=== PATIENT | female | born 1995 | race Hispanic/Latino ===

== ENCOUNTER 2019-06-18 09:38 | Observation (INO) | payer MEDICARE ==
[2019-06-17 16:25] VITALS: BP 112/64
[2019-06-17 16:31] LABS: CREATININE 0.5 mg/dL (0.5-1.5); POTASSIUM 4.8 mmol/L (3.5-5.1)
[2019-06-17 16:34] LABS: INR 1.03 (0.85-1.15); PROTHROMBIN TIME 10.8 SEC (9.6-11.6)
[2019-06-17 16:36] LABS: BASOPHILS % (AUTO) 0.7 % (0.0-5.0); HEMATOCRIT 35.7 % (36-48); MEAN CORPUSCULAR HEMOGLOBIN 23.1 pg (27.0-33.0); MEAN CORPUSCULAR HGB CONC 31.9 g/dL (32.0-36.0); MEAN CORPUSCULAR VOLUME 72.5 fL (79-99); MONOCYTES % (AUTO) 5.9 % (3.0-13.0); NEUTROPHILS % (AUTO) 66.4 % (40.0-77.0); PLATELET COUNT (AUTO) 417 K/uL (130-400); RED BLOOD CELL COUNT(AUTO) 4.93 MIL/uL (4.00-5.50); RED CELL DISTRIBUTION WIDTH 15.9 % (11.0-15.5); WHITE BLOOD COUNT (AUTO) 9.7 K/uL (4.8-10.8)
--- NOTE | 2019-06-17 17:04 | NUR ---
Called doctor george and advised him of plt of 417 and hemoglobin of 11.4, no new orders okay to proceed.
[2019-06-18] VITALS (21 sets, daily range): BP systolic 110–159; BP diastolic 50–81
[~2019-06-18] VITALS: Ht 121.9 cm; Wt 24.4 kg
[~2019-06-18 09:38] MED LIST: CEFAZOLIN SODIUM 1 GM VIAL IVP SCH; LACT10SO32 PO; MIRALAX PO
[2019-06-18] MEDS ORDERED: LACTATED RINGERS 1000ML 1,000 ML IV ONE ×2 (10:49→11:49)
[2019-06-18] MEDS ORDERED: LIDOCAINE PF 2% 5ML ABBOJECT ONE (10:50)
[2019-06-18] MEDS ORDERED: SUCCINYLCHOLINE 200MG/10ML SYR ONE (10:50)
[2019-06-18] MEDS ORDERED: PROPOFOL 10 MG/ML 20ML VIAL IV ONE (10:51)
[2019-06-18] MEDS ORDERED: ONDANSETRON HCL 4 MG/2 ML VIAL ONE (10:51)
[2019-06-18] MEDS ORDERED: DEXAMETHASONE SOD PHOSPHATE 10MG/ML 1ML VIAL ONE (10:51)
[2019-06-18] MEDS ORDERED: NEOSTIGMINE 5MG/5ML SYR IV ONE (10:51)
[2019-06-18] MEDS ORDERED: GLYCOPYRROLATE 1 MG/5 ML SYRINGE ONE (10:51)
[2019-06-18] MEDS ORDERED: MIDAZOLAM HCL 1 MG/ML 2ML VIAL ONE ×2 (10:51→14:18)
[2019-06-18] MEDS ORDERED: ROCURONIUM 10MG/1ML SYR 10 MG/ML ML ONE (10:52)
[2019-06-18] MEDS ORDERED: FENTANYL CITRATE PF 50 MCG/1 ML 2ML VIAL ONE (10:52)
[2019-06-18] MEDS ORDERED: ROPIVACAINE 0.5% 5MG/ML 30ML IJ ONE (11:02)
[2019-06-18] MEDS ORDERED: CEFAZOLIN SODIUM 1 GM VIAL ONE ×2 (11:41→12:15)
[2019-06-18] MEDS ORDERED: EPHEDRINE SULFATE 50 MG/ML AMPULE ONE (13:43)
[2019-06-18] MEDS ORDERED: LIDOCAINE HCL-MPF 1% 2ML VIAL IVP PRN (14:30)
[2019-06-18] MEDS ORDERED: POTASSIUM CHLORIDE 10% ELIXIR 20 MEQ/15 ML UDCUP PO PRN (14:30)
[2019-06-18] MEDS ORDERED: POTASSIUM CHLORIDE 20MEQ/100ML 100 ML IV PRN (14:30)
[2019-06-18] MEDS ORDERED: ACETAMINOPHEN ELIXIR 160 MG/5ML UDCUP PO PRN (14:30)
[2019-06-18] MEDS ORDERED: POTASSIUM CHLORIDE 20 MEQ ERTAB PO PRN (14:30)
[2019-06-18] MEDS ORDERED: MEPERIDINE-PF 25 MG/ML SYG ONE ×2 (14:35→14:48)
--- NOTE | 2019-06-18 15:37 | NUR ---
DISCHARGE PLANNING-WOUND VAC OVERHEARD TALK ABOUT WOUND VAC AND [facility] CALL TO DR. LUU- YES WILL NEED WOUND VAC, PT OF [facility], PLEASE CALL THEM THEY WILL ARRANGE CALL TO TOM AT [facility], STATES NO WOUND VAC, BUT IF NEWLY PLACED, PT HAS WOUND VAC AT HOME, PLS CALL [facility], AND HAVE MOM BRING WOUND VAC CALL TO [facility] NO RECORD OF PATIENT CALL TO [facility]- [facility] CALL TO [facility]- STATES DSG CHANGES ONLY, NO ORDERS FOR WOUND VAC, WILL NEED ORDERS, PLUS OWUND VAC, DO NOT THINK FMAILY HAS AT HOME, WILL NEED NEW WOUND VAC ORDERS AND REFERRAL. CERT PERIOD YESTERDAY CALL TO MOM, NO WOUND VAC AT HOME, WAS PICKED UP BY [facility]. Addendum: 06/18/19 at 1541 by LOLY RAMIREZ RN Amended: Links added.
[2019-06-18] MEDS: SODIUM CHLORIDE 0.9% 1000ML 1,000 ML IV SCH (15:54)
[2019-06-18] MEDS ORDERED: HYDROCODONE/ACETAMINOPHEN 7.5/325 MG 15 ML UDCUP PO PRN (16:45)
[2019-06-18] MEDS ORDERED: ONDANSETRON HCL 4 MG/2 ML VIAL IVP PRN (16:45)
[2019-06-18] MEDS: CEFAZOLIN SODIUM 1 GM VIAL IVP SCH (18:00)
[2019-06-18] MEDS: KETOROLAC TROMETHAMINE 15MG/ML IV PRN (21:40)
[2019-06-19] MEDS: CEFAZOLIN SODIUM 1 GM VIAL IVP SCH (00:48)
[2019-06-19] MEDS: DiphenhydrAMINE HCL 50 MG/ML VIAL IV PRN ×2 (00:57→21:40)
[2019-06-19] MEDS: SODIUM CHLORIDE 0.9% 1000ML 1,000 ML IV SCH (01:56)
[2019-06-19 03:58] LABS: HEMATOCRIT 26.3 % (36-48); MEAN CORPUSCULAR HEMOGLOBIN 23.1 pg (27.0-33.0); MEAN CORPUSCULAR HGB CONC 31.9 g/dL (32.0-36.0); MEAN CORPUSCULAR VOLUME 72.3 fL (79-99); PLATELET COUNT (AUTO) 324 K/uL (130-400); RED BLOOD CELL COUNT(AUTO) 3.64 MIL/uL (4.00-5.50); RED CELL DISTRIBUTION WIDTH 15.2 % (11.0-15.5); WHITE BLOOD COUNT (AUTO) 10.6 K/uL (4.8-10.8)
[2019-06-19 04:00] VITALS: BP 108/59
[2019-06-19 04:04] LABS: CREATININE 0.4 mg/dL (0.5-1.5); POTASSIUM 4.3 mmol/L (3.5-5.1)
[2019-06-19 07:40] VITALS: BP 107/52
[2019-06-19] MEDS ORDERED: ASPIRIN 81MG TAB.CHEW PO SCH (09:00)
[2019-06-19] MEDS ORDERED: POLYETHYLENE GLYCOL 3350 17 GM POWD.PACK PO SCH (09:00)
[2019-06-19] MEDS: KETOROLAC TROMETHAMINE 15MG/ML IV PRN ×2 (10:00→21:40)
[2019-06-19 11:14] VITALS: BP 104/62
--- NOTE | 2019-06-19 11:54 | NUR ---
[facility] UPDATE CM spoke to [facility] outbound call center representative, Vilma. Confirmed order was received and expedited order for release. CM notified to deliver wound vac to room 404. States supervisor sterile processing will be calling with estimated time of delivery. CM provided primary nurse number and CM number for call back. CM updated nursing with above. CM also f/u with Saiar with [facility]. States they do not have a wound vac for pt and will need DME to continue following pt.
[2019-06-19] MEDS ORDERED: HYDR473S51 PO (14:23)
[2019-06-19] MEDS ORDERED: ACET160S2 PO (14:23)
[2019-06-19 16:40] VITALS: BP 116/63
--- NOTE | 2019-06-19 18:47 | NUR ---
[facility] F/U cm spoke to Anup with [facility]. States ETA for wound vac is between 8-830 and will be delivered tonight. CM updated nursing with above.
[2019-06-19 19:47] VITALS: BP 113/68
--- NOTE | 2019-06-19 20:16 | NUR ---
REPORT CALLED TO [facility] NURSE LESLY CHAUDHARY RN.
--- NOTE | 2019-06-19 21:40 | NUR ---
DISCHARGE PATIENT ALONG WITH MOTHER AND FATHER AT BEDSIDE GIVEN DISCHARGE INSTRUCTIONS AND EDUCATION, INCLUDING SIDE EFFECTS ON NEW PRESCRIBED MEDICATIONS AND THE NEED TO MAKE FOLLOW UP APPOINTMENT. MOTHER VERBALIZED UNDERSTANDING OF ALL EDUCATION GIVEN VIA TEACH BACK. NO QUESTIONS OR CONCERNS VOICED AT THIS TIME. PATIENT MEDICATED FOR PAIN AND ITCHING BEFORE DISCONTINUING IV. IV DISCONTINUED, CATHETER INTACT. WOUND VAC CLAMPED. [facility] DEL[facility] WOUND VAC. EMS HERE TO TRANSFER PATIENT HOME. NO SIGNS OF DISTRESS NOTED UPON DISCHARGE. PATIENT LEFT VIA STRETCHER WITH EMS. FAMILY AT SIDE. ALL BELONGINGS TAKEN WITH. Addendum: 06/19/19 at 2301 by LUIS ENRIQUE GUZMAN RN RN Amended: Links added.
[2019-06-21] MEDS ORDERED: BISACODYL 10 MG SUPP.RECT RC PRN (14:30)
== END 2019-06-19 21:45 | disposition home health service (06) ==
LOC: DAH 09:38 → 4AH 09:39 → DAH 09:39
PROVIDERS: ADMIT Orthopaedic Surgery; ATTEND Orthopaedic Surgery
DX: T84.498A Other mechanical complication of other internal orthopedic devices, implants and grafts, initial encounter (principal); M21.852 Other specified acquired deformities of left thigh; G80.0 Spastic quadriplegic cerebral palsy; K59.00 Constipation, unspecified; X58.XXXA Exposure to other specified factors, initial encounter; Y93.89 Activity, other specified; Y92.89 Other specified places as the place of occurrence of the external cause; Y99.8 Other external cause status; Z83.3 Family history of diabetes mellitus; Z79.899 Other long term (current) drug therapy; Z79.01 Long term (current) use of anticoagulants
CPT/HCPCS: 11043; 20680; 36415 ×2; 73503; 80048 ×2; 84703; 85025; 85027; 85610; 86850; 86900; 86901; 87070; 87076; 87077 ×2; 87186 ×2; 87205; 88300; 88304; 96374; 96375; 96376; A4930 ×3; A6210; A6223; A9272; G0378 ×30; J0330; J0690 ×4; J1100; J1200 ×2; J1885 ×4; J2001; J2175 ×2; J2250 ×2; J2405 ×2; J2704; J2710; J2795; J3010; J3490 ×2; J7030; J7120 ×2

== ENCOUNTER 2020-11-13 09:03 | Emergency (ER) | payer MEDICARE ==
[~2020-11-13 09:03] MED LIST changes: +ACET160S2 PO; -CEFAZOLIN SODIUM 1 GM VIAL IVP SCH; +HYDR473S51 PO; -LACT10SO32 PO; -MIRALAX PO
[2020-11-13 09:43] LABS: BASOPHILS % (AUTO) 0.5 % (0.0-5.0); EOSINOPHILS % (AUTO) 0.1 % (0.0-8.0); HEMATOCRIT 38.5 % (36-48); LYMPHOCYTES % (AUTO) 10.9 % (21.0-51.0); MEAN CORPUSCULAR HEMOGLOBIN 27.9 pg (27.0-33.0); MEAN CORPUSCULAR VOLUME 84.4 fL (79-99); MONOCYTES % (AUTO) 2.9 % (3.0-13.0); NEUTROPHILS % (AUTO) 84.9 % (40.0-77.0); PLATELET COUNT (AUTO) 241 K/uL (130-400); RED BLOOD CELL COUNT(AUTO) 4.56 MIL/uL (4.00-5.50); RED CELL DISTRIBUTION WIDTH 13.2 % (11.0-15.5); WHITE BLOOD COUNT (AUTO) 8.6 K/uL (4.8-10.8)
[2020-11-13 09:59] LABS: ALBUMIN 3.9 g/dL (3.5-5.0); BILIRUBIN,TOTAL 0.2 mg/dL (0.2-1.0); CREATININE 0.6 mg/dL (0.5-1.5); POTASSIUM 3.9 mmol/L (3.5-5.1)
[2020-11-13 10:32] LABS: APPEARANCE,URINE CLEAR (CLEAR); BILIRUBIN,URINE NEGATIVE (NEGATIVE); COLOR,URINE YELLOW (YELLOW); GLUCOSE, URINE (UA) NEGATIVE (NEGATIVE); KETONES,URINE NEGATIVE (NEGATIVE); LEUKOCYTE ESTERASE ,URINE NEGATIVE (NEGATIVE); NITRATE,URINE NEGATIVE (NEGATIVE); OCCULT BLOOD,URINE SMALL (NEGATIVE); PROTEIN,URINE NEGATIVE (NEGATIVE); UROBILINOGEN,URINE 0.2 mg/dL (0.2-1.0)
[2020-11-13 11:20] LABS: RBC,URINE 0-1 /HPF (0-1); WBC,URINE 0-1 /HPF (0-1)
[2020-11-13 11:21] LABS: BACTERIA,URINE Rare /HPF (None Seen); SQUAMOUS EPITHELIAL CELL,UR Rare /HPF (0-2)
== END 2020-11-13 11:52 | disposition home or self-care (01) ==
LOC: EDH 09:03
DX: R33.9 Retention of urine, unspecified (principal)
CPT/HCPCS: 36415; 51702; 80053; 81001; 85025

== ENCOUNTER 2024-11-27 13:25 | Emergency (ER) | payer MEDICARE ==
--- NOTE | 2024-11-27 13:49 | ERN ---
ED Note History of Present Illness Stated Complaint: HAVING TROUBLE URINATING Chief Complaint: Urinary Retention Time Seen by MD: 13:37 Allergies: Coded Allergies: No Known Drug Allergies (Unverified Allergy, Unknown, 12/23/14) Home Meds Active Scripts Hydrocodone/Acetaminophen (Lortab 10 mg-300 mg/15 ml Elxr) 473 Ml Solution, 10 ML PO Q6HPRN PRN for PAIN, #250 ML Prov:MARIANNE LUU MD 06/19/19 Acetaminophen (Tylenol Elixir) 325 Mg/10.15 Ml Solution, 325 MG PO Q6HPRN PRN fo r PAIN, #500 ML Prov:MARIANNE LUU MD 06/19/19 Past Medical History Dictation Patient comes in with complaint of possible urinary retention. Patient has cerebral palsy. For extremity contractures. Per mom and dad he intermittently gets constipation and urinary retention and comes in for Guardado catheter. They have a doctor that visits monthly. Is scheduled to visit in two days. Typically if this happened she will get a Guardado and her primary we will discontinue the Guardado at bedside during home visit her parents. They report that last bowel movement was two days ago and noticed that she had not urinated since last night. Past Medical History: Other Additional Past Medical Hx: CEREBRAL PALSY Surgical History: Other Surgical History Other: HIP, BACK SX Family History: Negative Social History: Lives with family History: Not Applicable Review of System Dictation Limited as patient is nonverbal. Provided by parents. Initial Vital Sign VS Vital Signs Date Time Temp Pulse Resp B/P (MAP) Pulse Ox O2 Delivery O2 Flow Rate FiO2 11/27/24 13:32 99.3 97 16 110/75 95 Room Air 0 11/27/24 13:35 21 Physical Exam Dictation GEN: non toxic, NAD HEENT: atrumatic, PERRL, EOMI, conjunctivae normal NECK: Soft supple nontender Heart RRR, no murmurs Chest: No deformity Lungs: Lungs clear to auscultation Ab: Soft perhaps mildly distended suprapubic region but soft Back: No midline step-offs. No gross deformity. No CVA tenderness : m/s: Moving all four extremities. No gross deformity Neuro: CN 2-12 intact. Four extremities contracted but mobile Results (Laboratory/Radiology) Laboratory/Radiology Laboratory Tests Test 11/27/24 17:31 White Blood Count 8.5 K/uL (4.8-10.8) Red Blood Count 4.40 MIL/uL (4.00-5.50) Hemoglobin 8.3 g/dL (12.0-16.0) L Hematocrit 28.6 % (36-48) L Mean Corpuscular Volume 65.0 fL (79-99) L Mean Corpuscular Hemoglobin 18.9 pg (27.0-33.0) L Mean Corpuscular Hemoglobin Concent 29.0 g/dL (32.0-36.0) L Red Cell Distribution Width 19.1 % (11.0-15.5) H Platelet Count 305 K/uL (130-400) Mean Platelet Volume 9.5 fL (7.5-10.5) Immature Granulocyte % (Auto) 0.4 % (0-1) Neutrophils (%) (Auto) 58.0 % (40.0-77.0) Lymphocytes (%) (Auto) 34.2 % (21.0-51.0) Monocytes (%) (Auto) 5.9 % (3.0-13.0) Eosinophils (%) (Auto) 0.6 % (0.0-8.0) Basophils (%) (Auto) 0.9 % (0.0-5.0) Neutrophils # (Auto) 4.9 K/uL (1.8-7.7) Lymphocytes # (Auto) 2.9 K/uL (1.0-4.8) Monocytes # (Auto) 0.5 K/uL (0.1-1.0) Eosinophils # (Auto) 0.05 K/uL (0.00-0.70) Basophils # (Auto) 0.08 K/uL (0.00-0.20) Absolute Immature Granulocyte (auto 0.03 K/uL (0-1) Nucleated Red Blood Cells 0.0 % (0.0-0.19) Red Blood Cell Morphology See comments Sodium Level 139 mmol/L (136-145) Potassium Level 3.3 mmol/L (3.5-5.1) L Chloride Level 105 mmol/L (101-111) Carbon Dioxide Level 26 mmol/L (21-32) Blood Urea Nitrogen 8 mg/dL (7-18) Creatinine 0.4 mg/dL (0.5-1.0) L Glomerular Filtration Rate Calc 136 mL/min (>90) Random Glucose 93 mg/dL (70-105) Lactic Acid Level 1.3 mmol/L (0.8-2.5) Total Calcium 8.4 mg/dL (8.5-10.1) L Total Bilirubin 0.3 mg/dL (0.2-1.0) Aspartate Amino Transf (AST/SGOT) 14 U/L (10-37) Alanine Aminotransferase (ALT/SGPT) 9 U/L (12-78) L Alkaline Phosphatase 52 U/L (50-136) Total Protein 7.5 g/dL (6.0-8.3) Albumin 3.4 g/dL (3.5-5.0) L CT Scan Comment: PATIENT: BRYAN VELAZQUEZ MR#: [id number] : 1995 SEX: F AGE: 29 LOCATION: [facility] ORDER [id number] STATUS: [facility] REPORT#: [id number] SERVICE [id number] REASON: suprapubic pain, guardado cath placement ORDERING PHYSICIAN: WINNIE RUIZ MD PROCEDURE: ABD PEL WO - CT ABDOMEN/PELVIS W/O CONTRAST CT ABDOMEN/PELVIS W/O CONTRAST REASON: suprapubic pain, guardado cath placement COMPARISON: None. FINDINGS: Lung bases are clear. There are no focal liver lesions. There are normal-appearing kidneys.. Spleen and pancreas appear unremarkable. The gallbladder appears normal as well. There is constipation. The rectum is distended to between 8.7 and 7.4 cm consistent with a fecal impaction. Small bowel appears equalized, the small bowel is diffusely mildly distended. There is no transition zone to suggest obstruction. The appendix was not separately identified. There is no evidence of free fluid or intraperitoneal air. There are no focal fluid collections. Aorta and retroperitoneum appear normal. Urinary bladder is markedly distended. There appears to be a Guardado catheter present in the vagina. The anterior abdominal wall is intact. There is extensive surgical hardware present throughout the spine. IMPRESSION: 1. Markedly distended urinary bladder, Guardado catheter appears present in the vagina. 2. Severe diffuse constipation, there is a fecal impaction measuring 7.[address] was performed with one or more following dose reduction techniques: automated exposure control, adjustment of the mA and kv according to patient's size, or use of a iterative reconstruction technique. DICTATED BY: ANANYA AUSTIN MD DATE: 11/27/241541 ELECTRONICALLY SIGNED BY: ANANYA AUSTIN MD DATE: 11/27/24 1548 ED Course ED Course Orders Procedure Category Date Status Time Bladder Scan CPOE 11/27/24 Transmitted 13:44 Nurse Driven Guardado NATALIE 11/27/24 In Process Removal Pro 14:22 Guardado Bag With Home CPOE 11/27/24 Transmitted Instruct 14:22 Urinalysis LAB 11/27/24 Logged W/Microscopic 14:22 Ct Abdomen/Pelvis W/O CT 11/27/24 Resulted Contrast 15:17 Enema Instructions CPOE 11/27/24 Transmitted 16:24 Cbc With Differential LAB 11/27/24 Complete 16:53 Comprehensive LAB 11/27/24 Complete Metabolic Panel 16:53 Lactic Acid LAB 11/27/24 Complete 16:53 Vital Signs Date Time Temp Pulse Resp B/P (MAP) Pulse Ox O2 Delivery O2 Flow Rate FiO2 11/27/24 18:00 97.3 90 16 103/69 96 Room Air* 0 11/27/24 17:00 100 16 98/73 96 Room Air* 0 11/27/24 16:00 91 16 109/76 96 Room Air* 0 11/27/24 15:00 93 17 106/67 96 Room Air* 0 11/27/24 13:35 99.3 97 16 110/75 95 Room Air* 0 11/27/24 13:32 99.3 97 16 110/75 95 Room Air 0 Medical Decision Making MDM Urine bladder scan shows greater than 294 cc. Once her Guardado catheter and send UA. Patient has a low-grade temp and mildly tachycardic. This was discussed with parents. They did report that she has quite a difficult stick to get labs and IVs. We did discuss a stepwise approach. We will check urine 1st and if there are signs of infection we will reassess. Staff at difficulty passing Guardado catheter. I was asked to come to evaluate and assist at bedside. We did try passing a Guardado but it did appear to be distorted landmarks. we left the Guardado catheter in with a balloon likely vaginal. Then we sent the patient to CT scan. Please see CT report. Patient has significant fecal impaction that I think is distorting anatomy and also making her have urinary retention. Vaginal Guardado is discontinued We will give enema to try to attempt disimpaction and improvement of constipation. Patient was given enema x2 with mostly liquid contents. I did perform a digital rectal exam and no significant hard rectal stool was felt after enema in the distal rectum that I could reach. We will also check labs. Patient has significant urinary retention. Renal function intact. Per parents last time she urinated was yesterday. Patient has notable urinary and bladder distention essentially bladder was taking up the lower 3rd of her stomach. Multiple attempts were made at passing a Guardado catheter and a straight cath by multiple staff including myself. Repeated attempts after enema as well which were all unsuccessful. at this point patient does have urine retention and were unable to relieve this. We do not have urology coverage. Patient will need to be transferred for further evaluation and management. 1850: pt care transitioned to Dr. Gilmore pending final dispo. we are in the process of trying to transfer patient to a facility with urology services for urinary retention. pt will likely need suprapubic cath. DX & DISP Departure Impression: Primary Impression: Urinary retention Additional Impressions: Constipation, Fecal impaction in rectum Condition: Stable Referrals: PEGGY NASSAR MD (PCP) WINNIE RUIZ MD Nov 27, 2024 13:49
--- NOTE | 2024-11-27 14:16 | NUR ---
bladder scanner indicated pt has more than 294 ml in bladder
--- NOTE | 2024-11-27 14:23 | NUR ---
attempted to place guardado cath in however no urine in guardado , left cath in place and took patient to ct scan , advised ER Doctor
--- NOTE | 2024-11-27 15:48 | HMCIMG ---
CT ABDOMEN/PELVIS W/O CONTRAST REASON: suprapubic pain, guardado cath placement COMPARISON: None. FINDINGS: Lung bases are clear. There are no focal liver lesions. There are normal-appearing kidneys.. Spleen and pancreas appear unremarkable. The gallbladder appears normal as well. There is constipation. The rectum is distended to between 8.7 and 7.4 cm consistent with a fecal impaction. Small bowel appears equalized, the small bowel is diffusely mildly distended. There is no transition zone to suggest obstruction. The appendix was not separately identified. There is no evidence of free fluid or intraperitoneal air. There are no focal fluid collections. Aorta and retroperitoneum appear normal. Urinary bladder is markedly distended. There appears to be a Guardado catheter present in the vagina. The anterior abdominal wall is intact. There is extensive surgical hardware present throughout the spine. IMPRESSION: 1. Markedly distended urinary bladder, Guardado catheter appears present in the vagina. 2. Severe diffuse constipation, there is a fecal impaction measuring 7.[address] was performed with one or more following dose reduction techniques: automated exposure control, adjustment of the mA and kv according to patient's size, or use of a iterative reconstruction technique.
--- NOTE | 2024-11-27 17:30 | NUR ---
After two enemas given attempted to place guardado cath in again patient had small bm , however unable to place guardado , advised ER Doctor.
[2024-11-27 17:37] LABS: BASOPHILS # (AUTO) 0.08 K/uL (0.00-0.20); BASOPHILS % (AUTO) 0.9 % (0.0-5.0); EOSINOPHILS # (AUTO) 0.05 K/uL (0.00-0.70); EOSINOPHILS % (AUTO) 0.6 % (0.0-8.0); HEMATOCRIT 28.6 % (36-48); IMMATURE GRANULOCYTE ABSOLUTE 0.03 K/uL (0-1); LYMPHOCYTES # (AUTO) 2.9 K/uL (1.0-4.8); LYMPHOCYTES % (AUTO) 34.2 % (21.0-51.0); MEAN CORPUSCULAR HEMOGLOBIN 18.9 pg (27.0-33.0); MONOCYTES # (AUTO) 0.5 K/uL (0.1-1.0); MONOCYTES % (AUTO) 5.9 % (3.0-13.0); NEUTROPHILS # (AUTO) 4.9 K/uL (1.8-7.7); PLATELET COUNT (AUTO) 305 K/uL (130-400); RED CELL DISTRIBUTION WIDTH 19.1 % (11.0-15.5); WHITE BLOOD COUNT (AUTO) 8.5 K/uL (4.8-10.8)
[2024-11-27 17:48] LABS: CREATININE 0.4 mg/dL (0.5-1.0); POTASSIUM 3.3 mmol/L (3.5-5.1)
[2024-11-27 17:53] LABS: ALBUMIN 3.4 g/dL (3.5-5.0); BILIRUBIN,TOTAL 0.3 mg/dL (0.2-1.0); TOTAL PROTEIN, SERUM 7.5 g/dL (6.0-8.3)
[2024-11-27 18:00] VITALS: TEMP 97.3
--- NOTE | 2024-11-27 18:00 | NUR ---
Attempted to place guardado cath with doctor , unable to place guardado at this time
--- NOTE | 2024-11-27 19:38 | NUR ---
TRANSFER PT. WAS ACCEPTED @ 1930 BY EDGAR CONTRERAS MD FOR TRANSFER TO [facility]. REPORT: [id number]
--- NOTE | 2024-11-27 20:19 | NUR ---
[facility] CALLED FOR TRANSPORT
--- NOTE | 2024-11-27 20:54 | NUR ---
REPORT GIVEN TO HARLEEN ORTIZ AT [facility]. PT IS GETTING TRANSFERRED TO ER FOR UROLOGY SERVICES.
[2024-11-27 21:23] VITALS: BP 95/56; PULSE 84; RESP 18; O2SAT 95
== END 2024-11-27 21:27 | disposition short-term general hospital (02) ==
LOC: EDH 13:25
DX: R33.9 Retention of urine, unspecified (principal); K59.00 Constipation, unspecified; Z79.899 Other long term (current) drug therapy
CPT/HCPCS: 36415; 74176; 80053; 83605; 85025; 99285